=== PATIENT | male | born 1945 | race Native Hawaiian/Other Pacific Islander ===

== ENCOUNTER 2018-10-10 21:37 | Emergency (ER) | payer OTHER ==
[~2018-10-10] VITALS: Ht 172.7 cm; Wt 59.0 kg
[2018-10-10 23:20] LABS: PLATELET COUNT 300 K/uL (142-355)
[2018-10-11 01:23] VITALS: BP 108/67; TEMP 97.7
== END 2018-10-11 01:25 | disposition home or self-care (01) ==
LOC: ED 21:37
PROVIDERS: Family Medicine
DX: J30.89 Other allergic rhinitis (principal); M54.5 Low back pain; R91.1 Solitary pulmonary nodule
CPT/HCPCS: 36415; 80053; 81000; 85027; 87502; 99283

== ENCOUNTER 2018-11-20 21:46 | Emergency (ER) | payer OTHER ==
[~2018-11-20] VITALS: Ht 172.7 cm; Wt 61.7 kg
[2018-11-20 23:30] VITALS: BP 102/69; TEMP 97.5
== END 2018-11-20 23:31 | disposition home or self-care (01) ==
LOC: ED 21:46
DX: H92.03 Otalgia, bilateral (principal)
CPT/HCPCS: 99282

== ENCOUNTER 2019-08-14 10:04 | Emergency (ER) | payer OTHER ==
[~2019-08-14] VITALS: Ht 172.7 cm; Wt 61.7 kg
[2019-08-14 10:07] VITALS: TEMP 97.9
[2019-08-14 10:54] LABS: PLATELET COUNT 283 K/uL (142-355)
[2019-08-14 11:06] LABS: POTASSIUM 4.1 mmol/L (3.6-5.2); SODIUM 134 mmol/L (136-145)
[2019-08-14 13:49] VITALS: BP 139/76
== END 2019-08-14 13:50 | disposition home or self-care (01) ==
LOC: ED 10:04
PROVIDERS: Family Medicine
DX: I48.20 Chronic atrial fibrillation, unspecified (principal); F03.90 Unspecified dementia, unspecified severity, without behavioral disturbance, psychotic disturbance, mood disturbance, and anxiety
CPT/HCPCS: 80053; 81000; 82550; 84484; 85027; 93005; 96374; 99284; J3490

== ENCOUNTER 2021-06-06 21:14 | Emergency (ER) | payer OTHER ==
[~2021-06-06] VITALS: Ht 172.7 cm; Wt 70.3 kg
[2021-06-06 22:08] LABS: PLATELET COUNT 244 K/uL (142-355)
[2021-06-06 22:21] LABS: POTASSIUM 4.6 mmol/L (3.6-5.2)
[2021-06-06 23:30] VITALS: BP 118/81; TEMP 97.8
== END 2021-06-06 23:30 | disposition home or self-care (01) ==
LOC: ED 21:14
PROVIDERS: Hospitalist
DX: L03.116 Cellulitis of left lower limb (principal); L03.032 Cellulitis of left toe; E11.65 Type 2 diabetes mellitus with hyperglycemia
CPT/HCPCS: 36415; 80048; 83605; 85027; 87040; 96360; 96365; 96375; 99284; J1815; J1885; J2405; J3370